=== PATIENT | female | born 1960 | race African-American/Black ===

== ENCOUNTER 2017-10-28 18:16 | Emergency (ER) | payer OTHER ==
[~2017-10-28] VITALS: Ht 160 cm; Wt 59.0 kg
--- NOTE | ~2017-10-28 | EKG ---
[place] [address] [facility] [place] [address] ELECTROCARDIOGRAM REPORT Name: MIRIAM BOOTH [facility] [id number] Admission: 10/28/17 Attend Phys: Discharge: 10/28/17 Date of : 56 Report #: [id number] THIS REPORT FOR: //name// [facility] ED Test Date: 2017-10-28 Test Time: 19:01:17 Pat Name: MIRIAM BOOTH Department: Room: Gender: F Clinical Medical Transcriptionist: BIRGIT : 1960 Requested By: Aurelio Zambrano Order Number: [id number] MD: Prakash Luo Measurements Intervals [place] Rate: 88 P: 58 [place]: 160 QRS: -9 QRSD: 77 T: -8 QT: 355 QTc: 430 Interpretive Statements Sinus rhythm Anteroseptal infarct, old Borderline T abnormalities, inferior leads Compared to ECG 05/15/2004 12:43:41 No significant change was found Electronically Signed On 10-29-2017 8:17:23 MEDICAL DIAGNOSTIC RADIOGRAPHER by Prakash Luo [email or web address] <ELECTRONICALLY SIGNED> By: Prakash Luo MD, [facility] 10/29/17 08 190 00 Prakash Luo MD, [facility] /EPI
[2017-10-28] MEDS ORDERED: DIOVAN320 MG PO (18:34)
[2017-10-28 18:53] LABS: HEMATOCRIT 38.3 % (37.0-47.0); HEMOGLOBIN 13.1 gm/dL (12.0-15.0); MCH 29.6 pg (26.0-34.0); MCHC 34.2 g/dL (28.0-37.0); MCV 86.7 fL (80.0-100.0); RBC 4.42 mil/uL (4.20-5.00); RDW 14.2 % (10.5-14.5); WBC 7.6 thou/uL (4.0-11.0)
[2017-10-28 18:57] LABS: ANION GAP 13 mmol/L (7-16); BUN 15 mg/dL (7-18); CALCIUM 9.1 mg/dL (8.5-10.1); CHLORIDE 108 mmol/L (98-107); CO2 22 mmol/L (21-32); CREATININE 0.9 mg/dL (0.6-1.0); GLUCOSE 97 mg/dL (74-106); POTASSIUM 3.7 mmol/L (3.5-5.1); SODIUM 143 mmol/L (136-145)
[2017-10-28 19:06] LABS: TROPONIN-I < 0.04 ng/mL (<0.06)
[2017-10-28] MEDS ORDERED: TRAMADOL 50 MG50 MG PO (19:27)
[2017-10-28] MEDS ORDERED: AUGMENTIN 875-1 EACH PO (19:27)
== END 2017-10-28 19:43 | disposition home or self-care (01) ==
LOC: ER 18:16
PROVIDERS: Emergency Medicine
DX: J06.9 Acute upper respiratory infection, unspecified (principal); I10 Essential (primary) hypertension; G43.909 Migraine, unspecified, not intractable, without status migrainosus

== ENCOUNTER 2017-11-26 18:40 | Emergency (ER) | payer OTHER ==
[~2017-11-26] VITALS: Ht 160 cm; Wt 59.0 kg
--- NOTE | ~2017-11-26 | EKG ---
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 : 1960 Requested By: Pérez Kirkland Order Number: [id number] MD: Prakash Luo Measurements Intervals [employer] Rate: 69 P: 66 [place]: 169 QRS: -11 QRSD: 86 T: -65 QT: 373 QTc: 400 Interpretive Statements Sinus rhythm Probable anteroseptal infarct, age indeterminate Compared to ECG 10/28/2017 19:01:17 Baseline artifact limits interpretation and comparison Electronically Signed On 11-27-2017 9:02:35 [employer] by Prakash Luo [email or web address] <ELECTRONICALLY SIGNED> By: Prakash Luo MD, [facility] 11/27/17 0902 21 21 Prakash Luo MD, [facility] /EPI
[~2017-11-26 18:40] MED LIST: AUGMENTIN 875-1 EACH PO; DIOVAN320 MG PO; TRAMADOL 50 MG50 MG PO
[2017-11-26] MEDS ORDERED: VITAMIN D1000 UNI1 PO (18:51)
[2017-11-26] MEDS ORDERED: BUTALB-APAP-CA1 EACH PO (19:14)
[2017-11-26] MEDS ORDERED: CLONIDINE0.1 PO (19:14)
[2017-11-26] MEDS ORDERED: ATIVAN0.5 MG PO (19:14)
[2017-11-26 19:19] LABS: ABSOLUTE NEUTROPHILS 3.1 thou/uL (1.4-8.2); BASOPHILS 0.8 % (0.0-2.0); EOSINOPHILS 2.7 % (0.0-3.0); HEMATOCRIT 39.6 % (37.0-47.0); HEMOGLOBIN 13.5 gm/dL (12.0-15.0); LYMPHOCYTES 41.6 % (24.0-44.0); MCH 29.6 pg (26.0-34.0); MCHC 34.1 g/dL (28.0-37.0); MONOCYTES 6.6 % (1.0-8.0); PLATELET COUNT 332 thou/uL (150-400); POLYS 48.3 % (36.0-66.0); RBC 4.55 mil/uL (4.20-5.00); WBC 6.5 thou/uL (4.0-11.0)
[2017-11-26 19:28] LABS: CALCIUM 9.8 mg/dL (8.5-10.1); POTASSIUM 3.5 mmol/L (3.5-5.1)
[2017-11-26 19:34] LABS: TOTAL BILIRUBIN 0.3 mg/dL (<0.1-1.0); TOTAL PROTEIN 7.2 g/dL (6.4-8.2)
== END 2017-11-26 20:29 | disposition home or self-care (01) ==
LOC: ER 18:40
PROVIDERS: Emergency Medicine
DX: G43.909 Migraine, unspecified, not intractable, without status migrainosus (principal); I10 Essential (primary) hypertension; F41.9 Anxiety disorder, unspecified